=== PATIENT | female | born 1975 | race Caucasian/White ===

== ENCOUNTER 2016-08-23 11:50 | Emergency (ER) | payer SELFPAY ==
--- NOTE | 2016-08-23 12:06 | Emergency Department Record ---
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 She injured her right ankle. She has pain medial and posterior. No lacerations. She denies any other pain or injuries at this time. She has a prior left ankle fracture. MD Complaint: Extremity pain, Joint pain -: Hour(s) Location: Right History of Same: No -: Yes Arthralgia Radiation: None Consistency: Constant Improves with: Immobilization Worsens with: Exertion, Weight bearing Associated Symptoms: Denies other symptoms - Related Data Home Medications Medication Instructions Recorded Confirmed Last Taken Mv,Ca,Min/Iron Fum/FA/Vit K [Multi 1 each PO DAILY tab 05/22/15 08/23/16 For Her Tablet] Previous Rx's Medication Instructions Recorded Hydrocodone/Acetaminophen [[place] 1 tab PO Q8H PRN #25 tab 08/23/16 5mg/325mg] Allergies Allergy/AdvReac Type Severity Reaction Status Date / Time ciprofloxacin [From Cipro] Allergy Intermediate HIVES Verified 08/23/16 12:04 ciprofloxacin HCl Allergy Intermediate HIVES Verified 08/23/16 12:04 [From Cipro] doxycycline Allergy Intermediate HIVES Verified 08/23/16 12:04 Sulfa (Sulfonamide Allergy Intermediate HIVES Verified 08/23/16 12:04 Antibiotics) sulfamethoxazole Allergy Intermediate HIVES Verified 08/23/16 12:04 [From Bactrim] trimethoprim [From Bactrim] Allergy Intermediate HIVES Verified 08/23/16 12:04 Review of Systems Constitutional: Denies: Chills, Fever, Malaise, Weakness Eyes: Denies: Eye discharge ENT: Denies: Congestion, Throat pain Respiratory: Denies: Cough Cardiovascular: Denies: Chest pain, Palpitations, Syncope Endocrine: Denies: Fatigue Gastrointestinal: Denies: Abdominal pain, Diarrhea, Nausea, Vomiting Genitourinary: Denies: Dysuria, Urgency Musculoskeletal: Reports: Arthralgia, Joint swelling. Denies: Myalgia, Neck pain Skin: Denies: Bruising, Change in color, Rash Neurological: Denies: Headache Psychiatric: Denies: Anxiety Hematological/Lymphatic: Denies: Blood Clots, Easy bleeding, Easy bruising, Swollen glands Past Medical History - SOCIAL HISTORY Smoking Status: Never smoker Drug Use: None - RESPIRATORY Hx Respiratory Disorders: No - CARDIOVASCULAR Hx Cardio Disorders: No - NEURO Hx Neuro Disorders: Yes Hx Headaches: Yes (hx migraines) - GI Hx GI Disorders: No Hx Irritable Bowel: Yes - Hx Genitourinary Disorders: Yes Hx Kidney Stones: Yes (hx) - ENDOCRINE Hx Endocrine Disorders: No - MUSCULOSKELETAL Hx Musculoskeletal Disorders: No - PSYCH Hx Psych Problems: Yes Hx Depression: Yes - HEMATOLOGY/ONCOLOGY Hx Hematology/Oncology Disorders: No Family Medical History Hx Cancer: Father, Mother Physical Exam - General General Appearance: Alert, Oriented x3, Cooperative, No acute distress Limitations: No limitations - Head Head exam: Atraumatic, Normocephalic, Normal inspection - Eye Eye exam: Normal appearance - ENT ENT exam: Normal exam Ear exam: Normal external inspection Nasal Exam: Normal inspection - Neck Neck exam: Normal inspection, Full ROM. negative: Tenderness - Respiratory Respiratory exam: Normal lung sounds bilaterally. negative: Respiratory distress - Cardiovascular Cardiovascular Exam: Regular rate, Normal rhythm, Normal heart sounds - GI/Abdominal GI/Abdominal exam: Soft. negative: Tenderness - Rectal Rectal exam: Deferred - exam: Deferred - Extremities Extremities exam: Normal inspection, Full ROM, Normal capillary refill, Tenderness Image of Full Body: 1 - tender medial ankle, achilles mildly tender but intact, foot flexion and extention intact, intact sensation and pulses, no knee tenderness, no lateral malleolus tenderness - Back Back exam: Denies: CVA tenderness (R), CVA tenderness (L), Tenderness - Neurological Neurological exam: Alert, Oriented X3 - Psychiatric Psychiatric exam: Normal affect, Normal mood. negative: Agitated, Anxious - Skin Skin exam: Dry, Intact, Normal color, Warm Course - Reevaluation(s) Reevaluation #1: The patient was seen and examined XR ordered 08/23/16 12:05 Reevaluation #2: The prelim XR was reviewed The patient has a minimally to non displaced medial malleolus fracture with ND posterior component She will be immobilized and made NWB with an orthopedic referral I discussed the importance of absolutely no weight bearing and crutch use She was referred to the orthopedic specialty clinic for 08/24 appointment 08/23/16 12:27 08/23/16 13:31 Disposition Disposition: Discharge Clinical Impression: Ankle fracture, right Qualifiers: Encounter type: initial encounter Fracture type: closed Qualified Code(s): S82.891A - Other fracture of right lower leg, initial encounter for closed fracture Disposition: Home, Self-Care Condition: (1) Good Instructions: Ankle Fracture (ED) Additional Instructions: No weight bearing Use the crutches at all times You are being referred to the orthopedic specialty clinic at [facility] Prescriptions: Hydrocodone/Acetaminophen [[place] 5mg/325mg] 1 tab PO Q8H PRN #25 tab PRN Reason: Pain - General Referrals: TANVI MYLES [DOCTOR OF OSTEOPATH] - [facility] Specialty Clinics [Provider Group] Forms: Patient Portal Access Time of Disposition: 12:31
[2016-08-23] MEDS ORDERED: IBUPROFEN 600 MG TABLET PO ONE (12:11)
== END 2016-08-23 13:12 | disposition home or self-care (01) ==
LOC: ER 11:50
DX: S82.54XA Nondisplaced fracture of medial malleolus of right tibia, initial encounter for closed fracture (principal); W00.0XXA Fall on same level due to ice and snow, initial encounter; Y99.0 Civilian activity done for income or pay
CPT/HCPCS: 99283

== ENCOUNTER 2016-09-03 09:28 | Day surgery (SDC) | payer OTHER ==
[~2016-09-03 09:28] MED LIST: ACETAMINOPHEN 1000MG/100 ML PREMIX IV ONE; CEFAZOLIN 2 Gram 50 ML IVPB ONE; FAMOTIDINE 20MG TABLET PO ONE; MECLIZINE 25 MG TABLET PO ONE; METOCLOPRAMIDE 10 MG TABLET PO ONE
[2016-09-03] MEDS ORDERED: ONDANSETRON HCL IV 4 MG/2 ML VIAL IVP ONE (14:00)
[2016-09-03] MEDS ORDERED: MIDAZOLAM HCL 2MG/2ML VIAL IV ONE (14:00)
[2016-09-03] MEDS ORDERED: PROPOFOL 10 MG/ML VIAL IV ONE (14:00)
[2016-09-03] MEDS ORDERED: HYDROMORPHONE HCL 2 MG/ML VIAL IV ONE ×2 (14:00→14:48)
[2016-09-03] MEDS ORDERED: KETOROLAC 30 MG/ML VIAL IVP ONE (14:00)
[2016-09-03] MEDS ORDERED: ROCURONIUM BROMIDE 50MG/5ML VIAL IV ONE (14:00)
--- NOTE | 2016-09-03 16:18 | Operative Note ---
DATE OF SURGERY: 09/03/16 SURGEON: CONRAD MYLES D.O. PREOPERATIVE DIAGNOSIS: BIMALLEOLAR VARIANT FRACTURE OF THE RIGHT ANKLE. POSTOPERATIVE DIAGNOSIS: BIMALLEOLAR VARIANT FRACTURE OF THE RIGHT ANKLE. OPERATIVE PROCEDURE: OPEN REDUCTION AND INTERNAL FIXATION, MEDIAL MALLEOLUS, RIGHT ANKLE. DESCRIPTION: This 41-year-old female was taken to the Operating Room and placed in the supine position on the operating room table. A general anesthetic was administered and the right lower extremity was elevated. It was prepped with Hibiclens and draped in the usual sterile fashion. The extremity was exsanguinated and the tourniquet inflated to 250 mmHg around the right proximal calf. A curvilinear incision was made over the medial malleolus and dissection was carried down through the skin and subcutaneous tissue. Saphenous vein was protected anteriorly. Incision was made in the periosteum and the fracture site opened, irrigated, and debrided. The fracture ends were then reduced and held in position. A guidewire was passed across the fracture site. The image intensifier was brought in to the operative field to confirm the position and alignment of the guidewire and subsequently a 50 mm screw was placed after using the Countersink across the fracture site and subsequently the guidewire was removed. The fracture appeared to be anatomically reduced and again the image intensifier used to confirm position and alignment of the hardware at the completion. Subsequently, the wound was irrigated. The periosteum and subcutaneous tissue were closed with 4-0 Vicryl and the skin with a running interlocking 4-0 nylon suture. Sterile dressings were applied with plaster splint immobilization with the ankle in 90 degrees of dorsal flexion. GROSS PATHOLOGY: This patient demonstrated a bimalleolar variant-type fracture with the fracture posteriorly as well as one medially. The posterior fracture was nondisplaced and to completion of the procedure, it was felt necessary to place hardware across the fracture site. Conrad Myles D.O. Date & Time JOB NUMBER: [id number] MTDD
== END 2016-09-03 13:30 | disposition home or self-care (01) ==
LOC: SUR 09:28
PROVIDERS: ATTEND Orthopaedic Surgery
DX: S82.841A Displaced bimalleolar fracture of right lower leg, initial encounter for closed fracture (principal); I10 Essential (primary) hypertension
CPT/HCPCS: 76000; 27814; 01480; C1769; J1885; J2405; J1170; J0690

== ENCOUNTER 2016-11-11 12:17 | Emergency (ER) | payer SELFPAY ==
[2016-11-11] MEDS ORDERED: 0.9 % SODIUM CHLORIDE 1,000 ML BAG IV ONE (12:41)
[2016-11-11] MEDS ORDERED: Diph,Pert(Acell),Tet Vac 0.5 ML SYR IM ONE (12:42)
--- NOTE | 2016-11-11 12:45 | Emergency Department Record ---
History of Present Illness - General Chief Complaint: Suicide attempt Stated Complaint: SUICIDAL ATTEMPT Time Seen by Provider: 11/11/16 12:37 Source: Patient Mode of Arrival: Ambulatory Limitations: No limitations - History of Present Illness Initial Comments: The patient is here due to being very depressed lately due to problems at home and trying to hurt herself. She cut her L arm with a razor blade. She has been having problems at home with her spouse and has been very depressed. She has a hx of a suicide attempt 20 years ago when her mother and denies any overdosing. MD Complaint: Feels depressed, Suicidal ideation Onset/Timin -: Hour(s) Associated Psychiatric Symptoms: Other History of same: Yes Quality: Other Improves With: None Worsens With: None Associated Symptoms: Denies other symptoms If Self Harm: Admits thoughts of self harm, Self-inflicted trauma Details of Plan: Pt states she is unsure of harming herself. - Nurys Coma Scale Eye Response: (4) Open spontaneously Motor Response: (6) Obeys commands Verbal Response: (5) Oriented Nurys Total: 15 - Related Data Home Medications Medication Instructions Recorded Confirmed Last Taken Mv,Ca,Min/Iron Fum/FA/Vit K [Multi 1 each PO DAILY tab 05/22/15 11/11/16 For Her Tablet] Oxycodone HCl/Acetaminophen 1 tab PO Q6H PRN tab 09/13/16 11/11/16 11/09/16 [Percocet 7.5mg/325mg] Allergies Allergy/AdvReac Type Severity Reaction Status Date / Time ciprofloxacin [From Cipro] Allergy Intermediate HIVES Verified 11/11/16 12:37 ciprofloxacin HCl Allergy Intermediate HIVES Verified 11/11/16 12:37 [From Cipro] doxycycline Allergy Intermediate HIVES Verified 11/11/16 12:37 Sulfa (Sulfonamide Allergy Intermediate HIVES Verified 11/11/16 12:37 Antibiotics) sulfamethoxazole Allergy Intermediate HIVES Verified 11/11/16 12:37 [From Bactrim] trimethoprim [From Bactrim] Allergy Intermediate HIVES Verified 11/11/16 12:37 Review of Systems Constitutional: Denies: Chills, Fever Eyes: Denies: Eye discharge ENT: Denies: Congestion, Throat pain, Other Respiratory: Denies: As per HPI, Cough, Dyspnea Past Medical History - SOCIAL HISTORY Smoking Status: Former smoker - RESPIRATORY Hx Respiratory Disorders: No - CARDIOVASCULAR Hx Cardio Disorders: Yes Hx Hypertension: Yes - NEURO Hx Neuro Disorders: Yes Hx Headaches: Yes (hx migraines) Hx of Migraines: Yes - GI Hx GI Disorders: Yes Hx Reflux: Yes Hx Irritable Bowel: Yes - Hx Genitourinary Disorders: Yes Hx Kidney Stones: Yes (hx) - ENDOCRINE Hx Endocrine Disorders: No - MUSCULOSKELETAL Hx Musculoskeletal Disorders: No - PSYCH Hx Psych Problems: Yes Hx Depression: Yes Hx Suicide Attempt: No (20 years ago) - HEMATOLOGY/ONCOLOGY Hx Hematology/Oncology Disorders: Yes Hx Blood Transfusions: Yes (w/) Family Medical History Any Significant Family History?: No Hx Cancer: Father, Mother Physical Exam - General General Appearance: Alert, Oriented x3, Cooperative - Head Head exam: Atraumatic, Normocephalic, Normal inspection - Eye Eye exam: Normal appearance, PERRL, Conjunctival injection - ENT Throat exam: Normal inspection. negative: Tonsillar erythema, Tonsillar exudate - Neck Neck exam: Normal inspection, Full ROM. negative: Tenderness - Respiratory Respiratory exam: Normal lung sounds bilaterally. negative: Respiratory distress - Cardiovascular Cardiovascular Exam: Regular rate, Normal rhythm, Normal heart sounds - GI/Abdominal GI/Abdominal exam: Soft, Normal bowel sounds. negative: Tenderness - Extremities Extremities exam: Full ROM, Tenderness. negative: Normal inspection (There is a 3 cm superficial laceration to the dorsal L forearm. The L arm and hand are NVI distally.) - Neurological Neurological exam: Alert, Normal gait. negative: Abnormal gait, Motor sensory deficit Course Vital Signs 11/11/16 12:26 Temperature 97.7 F Pulse Rate 57 L Respiratory 20 Rate Blood Pressure 138/81 Pulse Ox 97 - Reevaluation(s) Reevaluation #1: 11/11/16 13:14 Procedure note: The L forearm was anesth. with 3 cc's Lido 1% with Epi. The wound was cleaned with betadine and sterile saline and explored. It was not down to the tendon or muscle. It was closed with 5 4.0 nylon sutures. There were no complications. Reevaluation #2: The patient is doing very well at this time. She denies any pain or discomfort and is ambulating normally. Her vitals are WNL's. 11/11/16 14:33 Reevaluation #3: The patient is doing very well at this time. SHe is very stable hemodynamically and exhibits no signs of toxicity. We did speak with Boogie at [facility] and the patient was accepted. The accepting physician was Dr. Sorto. 11/11/16 15:47 11/11/16 16:02 Medical Decision Making - Data Complexity MDM Data: Labs Ordered and/or Reviewed, EKG Ordered and/or Reviewed - Lab Data Result diagrams: 11/11/16 13:27 11/11/16 13:27 - EKG Data -: EKG Interpreted by Me EKG: No Acute Changes, Normal EKG Disposition Disposition: Transfer Clinical Impression: Suicidal ideation Arm laceration Qualifiers: Encounter type: initial encounter Laterality: left Qualified Code(s): S41.112A - Laceration without foreign body of left upper arm, initial encounter Disposition: Home, Self-Care Transfer To: [facility] Reason For Transfer: Psych. Accepting Physician: Dr. Sorto Time Discussed w/Accepting Physician: 16:15 Condition: (1) Good Instructions: Laceration (ED), Suicide Prevention for Adults (ED) Additional Instructions: Please proceed to [facility] as directed. Watch for signs of infection with the L arm laceration and have the sutures removed in 10 days. Forms: Patient Portal Access Time of Disposition: 15:49
[2016-11-11 13:42] LABS: BASO % 0.5 % (0-6); EOS % 2.8 % (0-6); GRAN % 69.8 % (47-80); HEMATOCRIT 40.6 % (35.0-47.0); HEMOGLOBIN 13.1 gm/dl (11.6-16.0); LYMPH % 19.7 % (16-45); MEAN CELL VOLUME 91.6 fl (81-97); MEAN CORPUSCULAR HEMOGLOBIN 29.6 pg (27-33); MEAN CORPUSCULAR HGB CONC 32.3 g/dl (32-36); MEAN PLATELET VOLUME 10.4 fl (7.4-10.4); MONO % 7.2 % (0-9); PLATELET COUNT 322 K/uL (130-400); RED BLOOD COUNT 4.43 M/uL (3.80-5.40); RED CELL DISTRIBUTION WIDTH 12.6 % (11.5-14.5); WHITE BLOOD COUNT W/O DIFF 9.2 K/uL (4.2-12.2)
[2016-11-11 13:56] LABS: ACETAMINOPHEN < 10.0 ug/mL (10.0-30.0); SALICYLATE < 1.0 mg/dL (2.8-20.0)
[2016-11-11 13:57] LABS: ALB/GLOB RATIO 1.5 (1.1-1.8); ALBUMIN 4.3 gm/dL (3.5-5.0); ALKALINE PHOSPHATASE 94 U/L (38-126); ALT/SGPT 30 U/L (9-52); ANION GAP 7.3 (7-16); AST/SGOT 29 U/L (14-36); BILIRUBIN,TOTAL 0.76 mg/dL (0.2-1.3); BLOOD UREA NITROGEN 14 mg/dL (7-17); CARBON DIOXIDE 27.7 mmol/L (22-30); CREATININE 0.7 mg/dL (0.52-1.04); EST GLOMERULAR FILTRATION RATE > 60 ml/min; GLUCOSE,RANDOM 99 mg/dL (70-110); TOTAL PROTEIN 7.1 gm/dL (6.3-8.2)
[2016-11-11] MEDS ORDERED: ACETAMINOPHEN 325 MG TAB PO ONE (14:03)
[2016-11-11 14:05] LABS: AMPHETAMINE SCREEN URINE NOT DETECTED; BARBITURATE SCREEN URINE NOT DETECTED; BENZODIAZEPINE SCREEN URINE NOT DETECTED; COCAINE SCREEN URINE NOT DETECTED; METHADONE SCREEN URINE NOT DETECTED; METHAMPHETAMINE SCREEN NOT DETECTED; OPIATE SCREEN URINE NOT DETECTED; OXYCODONE SCREEN URINE NOT DETECTED; PHENCYCLIDINE SCREEN URINE NOT DETECTED; PROPOXYPHENE SCREEN URINE NOT DETECTED; THC SCREEN URINE NOT DETECTED; TRICYCLIC ANTIDEPRESSANT SCRN NOT DETECTED
[2016-11-11] MEDS ORDERED: IBUPROFEN 600 MG TABLET PO ONE (15:47)
== END 2016-11-11 16:32 | disposition home or self-care (01) ==
LOC: ER 12:17
DX: S51.812A Laceration without foreign body of left forearm, initial encounter (principal); X78.8XXA Intentional self-harm by other sharp object, initial encounter; I10 Essential (primary) hypertension; Z87.891 Personal history of nicotine dependence; Y92.009 Unspecified place in unspecified non-institutional (private) residence as the place of occurrence of the external cause
CPT/HCPCS: 12002 ×2; 99285 ×2; 96372; 85025; 80053; 84703; 80305; 93005; 93010; G0480 ×3; 80320; 80329; 90715; J7030

== ENCOUNTER 2017-07-16 21:35 | Emergency (ER) | payer MEDICAID, SELFPAY ==
[2017-07-16] MEDS ORDERED: ONDANSETRON HCL IV 4 MG/2 ML VIAL IV ONE (21:44)
[2017-07-16] MEDS ORDERED: KETOROLAC 30 MG/ML VIAL IVP ONE (21:44)
[2017-07-16] MEDS ORDERED: 0.9 % SODIUM CHLORIDE 1,000 ML BAG IV ONE (21:44)
[2017-07-16 21:46] LABS: URINE APPEARANCE SL CLOUDY; URINE BILIRUBIN NEGATIVE (NEGATIVE); URINE BLOOD LARGE (NEGATIVE); URINE COLOR YELLOW; URINE GLUCOSE (UA) NEGATIVE (NEGATIVE); URINE KETONE NEGATIVE (NEGATIVE); URINE LEUKOCYTE ESTERASE TRACE (NEGATIVE); URINE NITRITE NEGATIVE (NEGATIVE); URINE PROTEIN TRACE (NEGATIVE); URINE UROBILINOGEN 0.2 E.U./dL (0.20 - 1.00)
[2017-07-16 21:53] LABS: URINE BACTERIA 1+; URINE RBC >50 (NONE SEEN)
--- NOTE | 2017-07-16 21:54 | Emergency Department Record ---
History of Present Illness - General Chief complaint: Flank Pain Stated complaint: KIDNEY STONE Source: Patient - History of Present Illness Initial comments: The patient began having 6/10 right flank pain yesterday morning. This morning is became a 01/17 for which she took tylenol #3 which she had left over from another medical problem. Tonight when it became and 02/17 she decided to come be evaluated. She has a history of kidney stones in the past and this pain feels similar. She was told at the last stone that she had another one that would be too large to pass on the right. She denies f,c,vomiting, diarrhea. The pain does radiated around to the right lateral and right lower abdomen. She has had a hysterectomy. MD Complaint: Other (flank pain) - Related Data Allergies Allergy/AdvReac Type Severity Reaction Status Date / Time ciprofloxacin [From Cipro] Allergy Intermediate HIVES Verified 11/11/16 12:37 ciprofloxacin HCl Allergy Intermediate HIVES Verified 11/11/16 12:37 [From Cipro] doxycycline Allergy Intermediate HIVES Verified 11/11/16 12:37 Sulfa (Sulfonamide Allergy Intermediate HIVES Verified 11/11/16 12:37 Antibiotics) sulfamethoxazole Allergy Intermediate HIVES Verified 11/11/16 12:37 [From Bactrim] trimethoprim [From Bactrim] Allergy Intermediate HIVES Verified 11/11/16 12:37 Iodinated Contrast- Oral and Allergy trouble Verified 07/16/17 21:50 IV Dye breathing Review of Systems Reviewed: No additional complaints except as noted below Constitutional: Reports: As per HPI. Denies: Chills, Fever, Malaise, Night sweats, Weakness, Weight change Eyes: Reports: As per HPI. Denies: Eye discharge, Eye pain, Photophobia, Vision change ENT: Reports: As per HPI. Denies: Congestion, Dental pain, Ear pain, Epistaxis , Hearing loss, Throat pain Respiratory: Reports: As per HPI. Denies: Cough, Dyspnea, Hemoptysis, Stridor, Wheezes Cardiovascular: Reports: As per HPI. Denies: Arrhythmia, Chest pain, Dyspnea on exertion, Edema, Murmurs, Orthopnea, Palpitations, Paroxysmal nocturnal dyspnea, Rheumatic Fever, Syncope Endocrine: Reports: As per HPI. Denies: Fatigue, Heat or cold intolerance, Polydipsia, Polyuria Gastrointestinal: Reports: As per HPI. Denies: Abdominal pain, Constipation, Diarrhea, Hematemesis, Hematochezia, Melena, Nausea, Vomiting Genitourinary: Reports: As per HPI. Denies: Abnormal menses, Discharge, Dyspareunia, Dysuria, Frequency, Hematuria, Incontinence, Retention, Urgency Musculoskeletal: Reports: As per HPI. Denies: Arthralgia, Back pain, Gout, Joint swelling, Myalgia, Neck pain Skin: Reports: As per HPI. Denies: Bruising, Change in color, Change in hair/ nails, Lesions, Pruritus, Rash Neurological: Reports: As per HPI. Denies: Abnormal gait, Confusion, Headache, Numbness, Paresthesias, Seizure, Tingling, Tremors, Vertigo, Weakness Psychiatric: Reports: As per HPI. Denies: Anxiety, Auditory hallucinations, Depression, Homicidal thoughts, Suicidal thoughts, Visual hallucinations Hematological/Lymphatic: Reports: As per HPI. Denies: Anemia, Blood Clots, Easy bleeding, Easy bruising, Swollen glands Past Medical History - SOCIAL HISTORY Smoking Status: Former smoker - RESPIRATORY Hx Respiratory Disorders: No - CARDIOVASCULAR Hx Cardio Disorders: Yes Hx Hypertension: Yes - NEURO Hx Neuro Disorders: Yes Hx Headaches: Yes (hx migraines) Hx of Migraines: Yes - GI Hx GI Disorders: Yes Hx Reflux: Yes Hx Irritable Bowel: Yes - Hx Genitourinary Disorders: Yes Hx Kidney Stones: Yes (hx) - ENDOCRINE Hx Endocrine Disorders: No - MUSCULOSKELETAL Hx Musculoskeletal Disorders: No - PSYCH Hx Psych Problems: Yes Hx Depression: Yes Hx Suicide Attempt: No (20 years ago) - HEMATOLOGY/ONCOLOGY Hx Hematology/Oncology Disorders: Yes Hx Blood Transfusions: Yes (w/) Family Medical History Hx Cancer: Father, Mother Physical Exam - General General Appearance: Alert, Oriented x3, Cooperative, Moderate distress - Head Head exam: Normal inspection - Eye Eye exam: Normal appearance, PERRL Pupils: Normal accommodation - ENT ENT exam: Normal exam, Mucous membranes moist, Normal external ear exam, Normal orophraynx, TM's normal bilaterally Ear exam: Normal external inspection. negative: External canal tenderness Nasal Exam: Normal inspection. negative: Discharge, Sinus tenderness Mouth exam: Normal external inspection, Tongue normal Teeth exam: Normal inspection. negative: Dental caries Throat exam: Normal inspection. negative: Tonsillar erythema, Tonsillar exudate - Neck Neck exam: Normal inspection, Full ROM. negative: Tenderness - Respiratory Respiratory exam: Normal lung sounds bilaterally. negative: Respiratory distress - Cardiovascular Cardiovascular Exam: Regular rate, Normal rhythm, Normal heart sounds - GI/Abdominal GI/Abdominal exam: Soft, Normal bowel sounds, Tenderness (right lower abdomen and lateral abdomen and into the right flank tenderness.) - Rectal Rectal exam: Deferred - exam: Deferred - Extremities Extremities exam: Normal inspection, Full ROM, Normal capillary refill. negative: Tenderness - Back Back exam: Reports: Normal inspection, CVA tenderness (R), Full ROM. Denies: Muscle spasm, Rash noted, Tenderness - Neurological Neurological exam: Alert, CN II-XII intact, Normal gait, Oriented X3, Reflexes normal. negative: Motor sensory deficit - Psychiatric Psychiatric exam: Normal affect, Normal mood - Skin Skin exam: Dry, Intact, Normal color, Warm Course - Reevaluation(s) Reevaluation #1: More comfortable after medications. Results of CT discussed. Patient requests [facility] for transfer for her infected kidney stone. 07/16/17 23:12 Reevaluation #2: Dr. Roca accepts patient in transfer [facility] for urology to see there. 07/16/17 23:15 Reevaluation #3: Pain level about 4/10. Nausea has resolved. Patient declined further medication at this time. Aware of and agrees with transfer to [facility] for urologist care. 07/16/17 23:23 Medical Decision Making - Management Options MDM Management: Additional Work-up Planned (e.g. ADM/Transfer/OP Study) (To [facility] for infected obstructed kidney stone) - Data Complexity MDM Data: Labs Ordered and/or Reviewed, X-Ray Ordered and/or Reviewed ( Noncontrast CT ABd/Pelvis: 4 mm obstructing calculus proximal ureter at the L4 level with mild right sided hydro.) - Lab Data Result diagrams: 07/16/17 21:57 07/16/17 21:57 Disposition Disposition: Transfer Clinical Impression: Renal stones UTI (urinary tract infection) Qualifiers: Urinary tract infection type: acute cystitis Hematuria presence: with hematuria Qualified Code(s): N30.01 - Acute cystitis with hematuria Disposition: Acute Care Hospital Transfer Transfer To: [facility] Emergency Department Reason For Transfer: Infected kidney stone with obstruction right side Accepting Physician: Dr. Roca emergency physician Time Discussed w/Accepting Physician: 23:23 Condition: (2) Stable Forms: Patient Portal Access Quality - Quality Measures Quality Measures: N/A - Blood Pressure Screening Does Patient Have Any of the Following: Active Dx of HTN Blood Pressure Classification: Hypertensive Reading Systolic Measurement: 170 Diastolic Measurement: 96 Screening for High Blood Pressure: Patient Exclusion, Hx of HTN [[id number]]
[2017-07-16 22:00] LABS: BASO % 0.7 % (0-6); EOS % 3.2 % (0-6); GRAN % 55.3 % (47-80); HEMATOCRIT 37.5 % (35.0-47.0); HEMOGLOBIN 12.6 gm/dl (11.6-16.0); LYMPH % 31.6 % (16-45); MEAN CELL VOLUME 92.6 fl (81-97); MEAN CORPUSCULAR HEMOGLOBIN 31.1 pg (27-33); MEAN CORPUSCULAR HGB CONC 33.6 g/dl (32-36); MONO % 9.2 % (0-9); PLATELET COUNT 326 K/uL (130-400); RED BLOOD COUNT 4.05 M/uL (3.80-5.40); RED CELL DISTRIBUTION WIDTH 12.5 % (11.5-14.5); WHITE BLOOD COUNT W/O DIFF 9.4 K/uL (4.2-12.2)
[2017-07-16 22:13] LABS: BLOOD UREA NITROGEN 11 mg/dL (6-20); CREATININE 0.7 mg/dL (0.5-0.9); EST GLOMERULAR FILTRATION RATE > 60 mL/min
[2017-07-16 22:14] LABS: TOTAL PROTEIN 6.9 g/dL (6.6-8.7)
[2017-07-16 22:16] LABS: GLUCOSE,RANDOM 83 mg/dL (74-109)
[2017-07-16 22:18] LABS: ALT/SGPT 9 U/L (<33)
[2017-07-16 22:19] LABS: ALB/GLOB RATIO 1.8 (1.1-1.8); ALBUMIN 4.4 g/dL (4.0-5.0); ALKALINE PHOSPHATASE 76 U/L (35-104); AST/SGOT 13 U/L (10.0-35.0); LIPASE 145 U/L (13-60)
[2017-07-16] MEDS ORDERED: CEFTRIAXONE SODIUM 2 GM in 0.9 % SODIUM CHLORIDE 100ML 100 ML IVPB ONE (23:11)
--- NOTE | 2017-07-17 21:41 | CT SCAN REPORT ---
EXAM: CT SCAN ABDOMEN/PELVIS WO CONTRAST HISTORY: RIGHT-SIDED PAIN. TECHNIQUE: CT abdomen and pelvis performed without intravenous or oral contrast. COMPARISON: CT abdomen and pelvis 07/03/2016. FINDINGS: The lung bases are unremarkable. There is a 4 mm obstructing calculus in the proximal right ureter. This is located at about the level of L4. This causes mild right hydronephrosis. There is a 7 mm nonobstructing calculus in the upper right kidney. There is mild perinephric fat stranding on the right. No left renal or ureteral calculus seen. No distal right ureteral calculus. The unenhanced liver and spleen are unremarkable. No pancreatic mass or inflammatory change. No calcified gallstones. The gallbladder is contracted. No adrenal lesion. No aortic aneurysm. No periaortic mass or adenopathy. There are no dilated bowel loops. The appendix is unremarkable. There is no pelvic mass, abscess, or adenopathy. No free air or free fluid identified. The uterus is surgically absent. IMPRESSION: 1. THERE IS A 4 MM CALCULUS IN THE PROXIMAL RIGHT URETER CAUSING MILD RIGHT HYDRONEPHROSIS. 2. THERE IS A 7 MM NONOBSTRUCTING CALCULUS IN THE RIGHT KIDNEY. 3. OTHERWISE, UNREMARKABLE. JOB NUMBER: [id number] [facility]
== END 2017-07-17 01:22 | disposition short-term general hospital (02) ==
LOC: ER 21:35
DX: N13.6 Pyonephrosis (principal); N30.01 Acute cystitis with hematuria; I10 Essential (primary) hypertension; Z87.891 Personal history of nicotine dependence; Z87.442 Personal history of urinary calculi
CPT/HCPCS: 99285 ×2; 96365; 96375; 96361; 83690; 85025; 80053; 81001; 74176; J1885; J2405; J7030

== ENCOUNTER 2017-09-23 07:04 | Day surgery (SDC) | payer OTHER ==
[~2017-09-23 07:04] MED LIST changes: +ACETAMINOPHEN 1,000 MG/100 ML BTL IV ONE; -ACETAMINOPHEN 1000MG/100 ML PREMIX IV ONE; +CEFAZOLIN 2 Gram 2 GM/50 ML BAG IVPB ONE; -CEFAZOLIN 2 Gram 50 ML IVPB ONE
[2017-09-23] MEDS ORDERED: FENTANYL PF 100MCG/2ML VIAL IV ONE (07:05)
[2017-09-23] MEDS ORDERED: PROPOFOL 10 MG/ML VIAL IV ONE (07:05)
[2017-09-23] MEDS ORDERED: KETOROLAC 30 MG/ML VIAL IVP ONE (07:05)
[2017-09-23] MEDS ORDERED: SEVOFLURANE 250 ML INH ONE (07:05)
[2017-09-23] MEDS ORDERED: ONDANSETRON HCL IV 4 MG/2 ML VIAL IVP ONE (07:05)
[2017-09-23] MEDS ORDERED: LIDOCAINE 2% MDV (20MG/ML) 20ML VIAL IV ONE (07:05)
[2017-09-23] MEDS ORDERED: MIDAZOLAM HCL 2MG/2ML VIAL IV ONE (07:05)
[2017-09-23] MEDS ORDERED: BUPIVACAINE 0.5% W/EPI MPF 30 ML VIAL IVP ONE (07:05)
--- NOTE | 2017-09-23 13:40 | Operative Note ---
DATE OF SURGERY: 09/23/2017 Surgeon: Conrad Lucio DO PREOPERATIVE DIAGNOSIS: Painful retained hardware of the right tibia (medial malleolus). POSTOPERATIVE DIAGNOSIS: Painful retained hardware of the right tibia (medial malleolus). OPERATION: Removal of screw to the right tibia (medial malleolus). DESCRIPTION OF PROCEDURE: This 42-year-old female was taken to the operating room, placed in the supine position on the operating room table. General anesthesia was induced and the right lower extremity was elevated, prepped with Hibiclens, and draped in the usual sterile fashion. Approximately 1 to 1.5 cm incision was made overlying the head of the screw in the medial malleolus of the right ankle. Dissection was carried down through the skin and subcutaneous tissue. The ligament was incised longitudinally in line with the fibers to expose the screw. Using blunt and sharp dissection, we were able to expose the screw head and the large fragment screwdriver was placed and the screw was removed without difficulty. The wound was irrigated with lactated Ringer's solution, infiltrated with 0.5 Marcaine with epinephrine. Subcutaneous tissue was closed with 4-0 Vicryl and skin with interrupted 4-0 nylon sutures. Sterile dressings applied. The patient taken to the recovery room in satisfactory condition. GROSS PATHOLOGY: This patient had previous medial malleolar fracture which was treated with open reduction and internal fixation. The hardware was painful and she wished to have the screw removed, which was performed in the manner described above. CC: MD YVES Childers
== END 2017-09-23 10:03 | disposition home or self-care (01) ==
LOC: SUR 07:04
PROVIDERS: ATTEND Orthopaedic Surgery
DX: T84.84XA Pain due to internal orthopedic prosthetic devices, implants and grafts, initial encounter (principal); I10 Essential (primary) hypertension
CPT/HCPCS: 20680; 01480; J1885; J2405; J3010; J0690

== ENCOUNTER 2018-12-05 15:09 | Emergency (ER) | payer MEDICAID, OTHER ==
--- NOTE | 2018-12-05 15:41 | Emergency Department Record ---
History of Present Illness - General Chief Complaint: Ankle/Foot Injury Stated Complaint: RT ANKLE PAIN Time Seen by Provider: 12/05/18 15:35 Source: Patient Mode of Arrival: Ambulatory Limitations: No limitations - History of Present Illness Initial Comments: 43 yo female presents with right ankle pain for about a week. 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 She did fracture the ankle a couple years ago. She had the hardware removed about a year ago. No swelling, warmth or redness. She has pain with certain positions or movements. Dr Lucio is her orthopedic physician. MD Complaint: Ankle injury, Other (Ankle Pain) Onset/Timin -: Week(s) Injury: Ankle: Right Type of Injury: Other Place: Work Severity: Mild Severity scale (1-10): 4 Improves With: Immobilization Worsens With: Movement, Weight bearing Context: Walking - Related Data Allergies Allergy/AdvReac Type Severity Reaction Status Date / Time ciprofloxacin [From Cipro] Allergy Intermediate HIVES Verified 12/05/18 15:28 ciprofloxacin HCl Allergy Intermediate HIVES Verified 12/05/18 15:28 [From Cipro] doxycycline Allergy Intermediate HIVES Verified 12/05/18 15:28 Sulfa (Sulfonamide Allergy Intermediate HIVES Verified 12/05/18 15:28 Antibiotics) sulfamethoxazole Allergy Intermediate HIVES Verified 12/05/18 15:28 [From Bactrim] trimethoprim [From Bactrim] Allergy Intermediate HIVES Verified 12/05/18 15:28 Iodinated Contrast- Oral and Allergy trouble Verified 12/05/18 15:28 IV Dye breathing Travel Screening - Travel/Exposure Within Last 30 Days Have you traveled within the last 30 days?: No Review of Systems Constitutional: Denies: Chills, Fever, Malaise, Weakness Eyes: Denies: Eye discharge ENT: Denies: Congestion, Throat pain Respiratory: Denies: Cough Cardiovascular: Denies: Chest pain, Syncope Endocrine: Denies: Fatigue Gastrointestinal: Denies: Abdominal pain, Diarrhea, Nausea, Vomiting Genitourinary: Denies: Dysuria Musculoskeletal: Reports: As per HPI, Arthralgia Skin: Denies: Bruising, Change in color, Rash Neurological: Denies: Headache Psychiatric: Denies: Anxiety Hematological/Lymphatic: Denies: Blood Clots, Easy bleeding, Easy bruising Past Medical History - SOCIAL HISTORY Smoking Status: Former smoker Alcohol Use: None Drug Use: None - RESPIRATORY Hx Respiratory Disorders: No - CARDIOVASCULAR Hx Cardio Disorders: Yes Hx Hypertension: Yes - NEURO Hx Neuro Disorders: Yes Hx Headaches: Yes (hx migraines) Hx of Migraines: Yes - GI Hx GI Disorders: Yes Hx Reflux: Yes Hx Irritable Bowel: Yes - Hx Genitourinary Disorders: Yes Hx Kidney Stones: Yes (hx) - ENDOCRINE Hx Endocrine Disorders: No - MUSCULOSKELETAL Hx Musculoskeletal Disorders: No - PSYCH Hx Psych Problems: Yes Hx Depression: Yes Hx Suicide Attempt: No (20 years ago) - HEMATOLOGY/ONCOLOGY Hx Hematology/Oncology Disorders: Yes Hx Blood Transfusions: Yes (w/) Family Medical History Any Significant Family History?: Yes Hx Cancer: Father, Mother Physical Exam - General General Appearance: Alert, Oriented x3, Cooperative, No acute distress Limitations: No limitations - Head Head exam: Atraumatic, Normal inspection - Eye Eye exam: Normal appearance. negative: Conjunctival injection - ENT ENT exam: Normal exam Ear exam: Normal external inspection Nasal Exam: Normal inspection Mouth exam: Normal external inspection - Neck Neck exam: Normal inspection - Cardiovascular Peripheral Pulses: 2+: Dorsalis Pedis (R) - Extremities Extremities exam: Normal inspection, Full ROM, Normal capillary refill, Tenderness. negative: Joint swelling Image of Feet: 1 - tender normal inspection, no calf tenderness, no achilles tenderness, no lateral tenderness. no swelling, no warmth, no redness - Neurological Neurological exam: Alert, Oriented X3 - Psychiatric Psychiatric exam: Normal affect, Normal mood - Skin Skin exam: Dry, Intact, Normal color, Warm Course Vital Signs 12/05/18 15:24 Temperature 97.5 F L Pulse Rate 69 Respiratory 20 Rate Blood Pressure 156/86 Pulse Ox 99 - Reevaluation(s) Reevaluation #1: 12/05/18 16:15 The XR was read as mild STS with mild degenerative changes. No acute fracture or dislocation Disposition Disposition: Discharge Clinical Impression: Ankle pain, right Disposition: Home, Self-Care Condition: (1) Good Instructions: Ankle Sprain (ED) Additional Instructions: Call your orthopedic doctor for the next available follow up appointment Review this ER visit and the tests performed with your family doctor Return to the ER for a recheck if worse, any new concerns or questions Use the lace up brace for support and comfort Use your crutches if the pain returns Take the prescriptions provided as directed Forms: Patient Portal Access Time of Disposition: 16:16 Quality - Quality Measures Quality Measures: N/A - Blood Pressure Screening Does Patient Have Any of the Following: No Blood Pressure Classification: Pre-Hypertensive BP Reading Systolic Measurement: 156 Diastolic Measurement: 86 Screening for High Blood Pressure: < Pre-Hypertensive BP, F/U Documented > [G8950] Pre-Hypertensive Follow-up Interventions: Referral to alternative/primary care provider.
--- NOTE | 2018-12-07 10:08 | RADIOLOGY REPORT ---
EXAM: RIGHT ANKLE, THREE VIEWS HISTORY: RIGHT ANKLE PAIN BEGINNING LAST WEEK. 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 NO RECENT INJURY. TECHNIQUE: Three views of the right ankle were obtained. Comparison: Three views of the right ankle dated 09/09/17. FINDINGS: There is normal bone mineralization. No acute fracture nor dislocation. There has been interval removal of the cannulated fixation screw previously demonstrated within the medial malleolus. There are mild degenerative changes of the tibiotalar joint. Mild degenerative changes of the hindfoot. There is mild soft tissue swelling anteromedially. IMPRESSION: 1. NO ACUTE FRACTURE, DISLOCATION, NOR DESTRUCTIVE BONE LESION. 2. INTERVAL REMOVAL OF THE PREVIOUSLY DEMONSTRATED FIXATION SCREW FROM THE MEDIAL MALLEOLUS. 3. MILD DEGENERATIVE CHANGES. 4. MILD ANTEROMEDIAL SOFT TISSUE SWELLING. JOB NUMBER: [id number] [facility]
== END 2018-12-05 16:36 | disposition home or self-care (01) ==
LOC: ER 15:09
DX: M25.571 Pain in right ankle and joints of right foot (principal); I10 Essential (primary) hypertension; Z87.891 Personal history of nicotine dependence
CPT/HCPCS: 99283